=== PATIENT | female | born 1955 | race Two or more races ===

== ENCOUNTER 2021-11-19 13:46 | Emergency (ER) | payer MEDICARE, OTHER ==
[~2021-11-19] VITALS: Ht 165.1 cm; Wt 113.9 kg
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
--- NOTE | 2021-11-19 14:25 | NUR ---
DR BURDEN AT BEDSIDE
[2021-11-19] MEDS ORDERED: FAMOTIDINE (20 MG) 20 MG TABLET PO ONE (14:30)
[2021-11-19] MEDS ORDERED: EPINEPHRINE (1:1000) MDV 30 MG/30ML VIAL SUBCUT ONE (14:30)
[2021-11-19] MEDS ORDERED: diphenhydrAMINE HCL 50 MG CAPSULE PO ONE (14:30)
[2021-11-19] MEDS ORDERED: predniSONE 10 MG TABLET PO ONE (14:30)
[2021-11-19] MEDS ORDERED: EPINEPHRINE (1:1000) 1 MG/ML AMPUL ONE (14:42)
[2021-11-19] MEDS ORDERED: predniSONE 20 MG TABLET ONE (14:43)
[2021-11-19] MEDS ORDERED: FAMOTIDINE (20 MG) 20 MG TABLET ONE (14:43)
[2021-11-19] MEDS ORDERED: diphenhydrAMINE HCL 50 MG CAPSULE ONE (14:43)
[2021-11-19] MEDS ORDERED: PRED50TA PO ×2 (15:19→15:34)
[2021-11-19] MEDS ORDERED: EPIN0.3P3 IM ×2 (15:19→15:34)
[2021-11-19 15:38] VITALS: BP 126/72
--- NOTE | 2021-11-19 15:38 | NUR ---
Patient discharged to home in stable condition. Written and verbal after care instructions given. Patient verbalizes understanding of instruction.
== END 2021-11-19 15:39 | disposition home or self-care (01) ==
LOC: ER 13:58
DX: T63.441A Toxic effect of venom of bees, accidental (unintentional), initial encounter (principal); I10 Essential (primary) hypertension; Z88.2 Allergy status to sulfonamides; Z79.899 Other long term (current) drug therapy; Y92.89 Other specified places as the place of occurrence of the external cause
CPT/HCPCS: 96372; 99284; J0171 ×2; J7512 ×2; Q0163

== ENCOUNTER 2021-11-23 20:45 | Emergency (ER) | payer MEDICARE, OTHER ==
[~2021-11-23] VITALS: Ht 167.6 cm; Wt 104.3 kg
[~2021-11-23 20:45] MED LIST: EPIN0.3P3 IM; PRED50TA PO
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
--- NOTE | 2021-11-23 20:58 | NUR ---
VERBAL ORDER 50MG BENADRYL AND 125 SOLU-MEDROL
[2021-11-23] MEDS ORDERED: diphenhydrAMINE HCL 50 MG/ML VIAL ONE (20:59)
[2021-11-23] MEDS ORDERED: methylPREDNISolone SOD SUCC 125 MG/2ML VIAL ONE (20:59)
[2021-11-23] MEDS: diphenhydrAMINE HCL 50 MG/ML VIAL IV ONE (21:00)
[2021-11-23] MEDS: methylPREDNISolone SOD SUCC 125 MG/2ML VIAL IV ONE (21:00)
[2021-11-23 21:26] LABS: BASOPHILS # (AUTO) 0.1 K/uL (0.0-0.2); BASOPHILS % (AUTO) 0.4 % (0.0-2.0); HEMATOCRIT 39 % (33-45); HEMOGLOBIN 12.6 g/dL (11.5-14.8); LYMPHOCYTES # (AUTO) 7.4 K/uL (0.8-4.8); LYMPHOCYTES % (AUTO) 59.2 % (20.0-44.0); MEAN CORPUSCULAR HGB CONC 32 g/dl (31.0-36.0); MEAN CORPUSCULAR VOLUME 98 fL (82-100); MONOCYTES # (AUTO) 0.8 K/uL (0.1-1.30); MONOCYTES % (AUTO) 6.6 % (2.0-12.0); NEUTROPHILS # (AUTO) 4.2 K/uL (1.8-8.9); NEUTROPHILS % (AUTO) 33.8 % (43.0-81.0); PLATELET COUNT (AUTO) 239 K/uL (150-450); WHITE BLOOD COUNT (AUTO) 12.5 K/uL (4.3-11.0)
[2021-11-23 21:39] LABS: ALANINE AMINOTRANSFERASE 17 U/L (12-78); ALBUMIN 3.6 g/dL (3.4-5.0); ALKALINE PHOSPHATASE 100 U/L (46-116); ASPARTATE AMINOTRANSFERASE 8 U/L (15-37); BILIRUBIN,DIRECT 0.1 mg/dL (0.0-0.2); BILIRUBIN,TOTAL 0.2 mg/dL (0.2-1.0); CALCIUM, SERUM 9.2 mg/dL (8.5-10.1); CARBON DIOXIDE 23 mmol/L (21-32); CHLORIDE 104 mmol/L (98-107); CREATININE 0.8 mg/dL (0.6-1.3); GLUCOSE 120 mg/dL (74-106); POTASSIUM 3.8 mmol/L (3.5-5.1); SODIUM SERUM 137 mmol/L (136-145); TOTAL PROTEIN, SERUM 7.5 g/dL (6.4-8.2); UREA NITROGEN, BLOOD 23 mg/dL (7-18)
[2021-11-23] MEDS ORDERED: EPIN0.3P3 IM (22:12)
--- NOTE | 2021-11-23 23:04 | NUR ---
attempted to call wendy, kept on hold
--- NOTE | 2021-11-23 23:10 | NUR ---
called wendy to have images read
--- NOTE | 2021-11-23 23:20 | NUR ---
Patient discharged to home in stable condition. Written and verbal after care instructions given. Patient verbalizes understanding of instruction. IV removed. Catheter intact and site benign. Pressure and 4x4 applied to site. No bleeding noted. PT ambulatory with a steady gait
[2021-11-24 00:05] VITALS: BP 158/85
== END 2021-11-23 23:20 | disposition home or self-care (01) ==
LOC: ER 20:52
DX: T78.40XA Allergy, unspecified, initial encounter (principal); T63.441A Toxic effect of venom of bees, accidental (unintentional), initial encounter; I10 Essential (primary) hypertension; Z88.2 Allergy status to sulfonamides; Z79.52 Long term (current) use of systemic steroids; Z79.899 Other long term (current) drug therapy; Y92.89 Other specified places as the place of occurrence of the external cause
CPT/HCPCS: 36415; 71045; 80048; 80076; 84484; 85025; 96374; 96375; 99284; J1200; J2930